=== PATIENT | male | born 1945 | race Caucasian/White ===

== ENCOUNTER → 2020-12-03 | Outpatient (CLI) | payer OTHER ==
[~2020-12-03] VITALS: Ht 160 cm; Wt 68.0 kg
[~2020-12-03] MED LIST: ABIR250T2 PO; AMLO-496 PO; CYAN100060 PO; HYDROmorphone HCL 2 MG/ML VL IV PRN; METO25TA5 PO; OME20GT PO; ONDANSETRON HCL 4 MG/2 ML VIAL IV PRN; PRED1PAK8 PO; SUCCINYLCHOLINE CHLORIDE 20 MG/ML 10ML VIAL IV ONE
== END | disposition home or self-care (01) ==
LOC: SUR 14:52 → EDSTATUS 12-06 12:45
PROVIDERS: ATTEND Urology
DX: R31.9 Hematuria, unspecified (principal); Z20.822 Contact with and (suspected) exposure to COVID-19; Z98.890 Other specified postprocedural states
CPT/HCPCS: J0330

== ENCOUNTER 2020-12-04 10:04 | Inpatient (IN) | payer OTHER ==
[2020-12-04] VITALS (14 sets, daily range): BP systolic 114–173; BP diastolic 37–88
[~2020-12-04] VITALS: Ht 165.1 cm; Wt 71.1 kg
[~2020-12-04 10:04] MED LIST changes: -HYDROmorphone HCL 2 MG/ML VL IV PRN; -ONDANSETRON HCL 4 MG/2 ML VIAL IV PRN; -SUCCINYLCHOLINE CHLORIDE 20 MG/ML 10ML VIAL IV ONE
[2020-12-04 11:03] LABS: Hematocrit 11.9 % (41.0-53.0); Mean Corpuscular Hemoglobin 29.1 pg (28.0-32.0); Mean Corpuscular Hgb Conc. 34.5 g/dL (32.0-36.0); Mean Corpuscular Volume 84.2 fL (80.0-100.0); Platelet Count (auto) 452 10^3/uL (140-450); Red Blood Cells 1.41 10^6/uL (4.5-5.90); Red Cell Distribution Width 15.7 % (11.8-14.3); White Blood Cell 3.6 10^3/uL (4.4-10.8)
[2020-12-04 11:04] LABS: Urine Bacteria NONE SEEN /hpf (None Seen); Urine Blood 3+ /uL (Negative); Urine WBC 433 /hpf (0 - 3)
[2020-12-04 11:05] LABS: Hemoglobin 4.1 g/dL (13.5-17.5)
[2020-12-04 11:06] LABS: Urine Specific Gravity 1.018 (1.001-1.035)
[2020-12-04 11:07] LABS: Basophils % (manual) 0 (0.0-2.0); Blast Cells 0; Eosinophils % (manual) 0 (0-7); Metamyelocytes % 0; Myelocytes % 0; Promyelocytes % 0; Reactive Lymphocytes 0
[2020-12-04 11:13] LABS: Albumin 2.9 g/dL (3.4-5.0); Anion Gap 10 (5-15); Blood Urea Nitrogen 11 mg/dL (7-18); Calcium 8.2 mg/dL (8.5-10.1); Carbon Dioxide 27 mmol/L (21-32); Chloride 95 mmol/L (98-107); Glucose 130 mg/dL (74-106); Potassium 3.2 mmol/L (3.5-5.1); Sodium 132 mmol/L (136-145)
[2020-12-04 11:18] LABS: Alanine Aminotransferase 12 U/L (16-61); Alkaline Phosphatase 31 U/L (45-117); Aspartate Aminotransferase 16 U/L (15-37); BUN/Creatinine Ratio 10.8; Bilirubin, Total 0.4 mg/dL (0.2-1.0); GFR African American 92 mL/min; GFR Non-African American 76 mL/min; Total Protein 5.6 g/dL (6.4-8.2)
[2020-12-04 11:30] LABS: Band Neutrophils % (manual) 2; Lymphocytes % (manual) 10 (10.0-50.0); Monocytes % (manual) 6 (0-12)
[2020-12-04] MEDS ORDERED: LIDOCAINE 2% JELLY 11ml (GLYDO) UR ONE (11:45)
[2020-12-04] MEDS ORDERED: LIDOCAINE 2% JELLY 11ml (GLYDO) ONE (11:46)
[2020-12-04] MEDS ORDERED: cefTRIAXone 1GM/50ML D5W 50 ML IV ONE (13:30)
[2020-12-04] MEDS ORDERED: NITROGLYCERIN 0.4 MG SL TAB SL PRN (14:30)
[2020-12-04] MEDS ORDERED: MORPHINE SULF INJ 2 MG/ML SYRINGE 1ML IV PRN (14:30)
[2020-12-04] MEDS ORDERED: ALPRAZolam 0.25 MG TAB PO PRN (14:30)
[2020-12-04] MEDS ORDERED: POTASSIUM CHLORIDE 40 MEQ, LIDOCAINE 1% (LOCAL ANESTH.) 4 ML in SODIUM CHL 0.9% 250 ML IV ONE (14:30)
[2020-12-04] MEDS: ABIRATERONE ACETATE 250 MG PO SCH ×2 (18:00→22:00)
[2020-12-04] MEDS: GABAPENTIN 300 MG CAP PO SCH (22:30)
[2020-12-04] MEDS: METOPROLOL TARTRATE 25 MG TAB PO SCH (22:30)
[2020-12-05] VITALS (24 sets, daily range): BP systolic 106–167; BP diastolic 48–80
[2020-12-05 01:51] LABS: Basophils # (auto) 0 10 ^3/uL (0-0.2); Basophils % (auto) 0.5 % (0.0-2.0); Eosinophils # (auto) 0 10 ^3/uL (0-0.8); Eosinophils % (auto) 0.8 % (0.0-7.0); Hematocrit 25.3 % (41.0-53.0); Hemoglobin 8.7 g/dL (13.5-17.5); Lymphocytes # (auto) 0.5 10 ^3/uL (0.4-5.4); Lymphocytes % (auto) 12.8 % (10.0-50.0); Mean Corpuscular Hgb Conc. 34.2 g/dL (32.0-36.0); Mean Corpuscular Volume 84.8 fL (80.0-100.0); Monocytes # (auto) 0.4 10 ^3/uL (0-1.3); Monocytes % (auto) 9.6 % (0.0-12.0); Neutrophils % (auto) 76.3 % (37.0-80.0); Nucleated Red Blood Cells % 0.1 %; Platelet Count (auto) 302 10^3/uL (140-450); Red Blood Cells 2.99 10^6/uL (4.5-5.90); Red Cell Distribution Width 14.8 % (11.8-14.3); White Blood Cell 3.9 10^3/uL (4.4-10.8)
[2020-12-05 05:56] LABS: Basophils # (auto) 0 10 ^3/uL (0-0.2); Basophils % (auto) 0.9 % (0.0-2.0); Eosinophils # (auto) 0 10 ^3/uL (0-0.8); Hematocrit 26.6 % (41.0-53.0); Lymphocytes # (auto) 0.6 10 ^3/uL (0.4-5.4); Lymphocytes % (auto) 13.6 % (10.0-50.0); Mean Corpuscular Hgb Conc. 33.9 g/dL (32.0-36.0); Mean Corpuscular Volume 85.7 fL (80.0-100.0); Monocytes # (auto) 0.4 10 ^3/uL (0-1.3); Monocytes % (auto) 9.6 % (0.0-12.0); Neutrophils # (auto) 3.1 10 ^3/uL (1.6-8.6); Neutrophils % (auto) 74.9 % (37.0-80.0); Nucleated Red Blood Cells % 0.2 %; Platelet Count (auto) 329 10^3/uL (140-450); Red Blood Cells 3.11 10^6/uL (4.5-5.90); Red Cell Distribution Width 14.9 % (11.8-14.3); White Blood Cell 4.1 10^3/uL (4.4-10.8)
[2020-12-05 06:23] LABS: Potassium 3.7 mmol/L (3.5-5.1)
[2020-12-05] MEDS: ABIRATERONE ACETATE 250 MG PO SCH ×4 (06:30→22:00)
[2020-12-05] MEDS: GABAPENTIN 300 MG CAP PO SCH ×3 (06:30→22:01)
[2020-12-05 06:34] LABS: BUN/Creatinine Ratio 9.9; Calcium 7.5 mg/dL (8.5-10.1); Magnesium 2.7 mg/dL (1.6-2.6)
[2020-12-05] MEDS: amLODIPine BESYLATE 5 MG TAB PO SCH (09:48)
[2020-12-05] MEDS: CYANOCOBALAMIN 500 MCG TAB PO SCH (09:48)
[2020-12-05] MEDS: PANTOPRAZOLE 40 MG TAB PO SCH (09:48)
[2020-12-05] MEDS: METOPROLOL TARTRATE 25 MG TAB PO SCH ×2 (09:48→22:01)
[2020-12-05] MEDS ORDERED: FOLIC ACID 1 MG, MULTIPLE VITAMIN 10 ML, MAGNESIUM SULF SDV 50% 8 MEQ, THIAMINE INJ 100... INJ ONE ×5 (12:00)
[2020-12-06] VITALS (24 sets, daily range): BP systolic 107–154; BP diastolic 48–86
[2020-12-06 03:06] LABS: Basophils # (auto) 0 10 ^3/uL (0-0.2); Eosinophils # (auto) 0.1 10 ^3/uL (0-0.8); Eosinophils % (auto) 2.7 % (0.0-7.0); Hematocrit 24.7 % (41.0-53.0); Hemoglobin 8.5 g/dL (13.5-17.5); Lymphocytes # (auto) 0.5 10 ^3/uL (0.4-5.4); Lymphocytes % (auto) 12.4 % (10.0-50.0); Mean Corpuscular Hemoglobin 29.3 pg (28.0-32.0); Mean Corpuscular Hgb Conc. 34.5 g/dL (32.0-36.0); Mean Corpuscular Volume 84.9 fL (80.0-100.0); Monocytes # (auto) 0.3 10 ^3/uL (0-1.3); Monocytes % (auto) 9.1 % (0.0-12.0); Neutrophils # (auto) 2.8 10 ^3/uL (1.6-8.6); Neutrophils % (auto) 74.8 % (37.0-80.0); Nucleated Red Blood Cells % 0.2 %; Platelet Count (auto) 330 10^3/uL (140-450); Red Blood Cells 2.91 10^6/uL (4.5-5.90); Red Cell Distribution Width 15.6 % (11.8-14.3); White Blood Cell 3.7 10^3/uL (4.4-10.8)
[2020-12-06 03:25] LABS: INR 0.99 (0.9-1.15)
[2020-12-06 03:27] LABS: BUN/Creatinine Ratio 11.3; Calcium 7.9 mg/dL (8.5-10.1); Potassium 3.6 mmol/L (3.5-5.1)
[2020-12-06] MEDS: ABIRATERONE ACETATE 250 MG PO SCH ×4 (07:19→22:38)
[2020-12-06] MEDS: GABAPENTIN 300 MG CAP PO SCH ×3 (07:19→22:39)
[2020-12-06] MEDS: METOPROLOL TARTRATE 25 MG TAB PO SCH ×2 (08:28→22:39)
[2020-12-06] MEDS: CYANOCOBALAMIN 500 MCG TAB PO SCH (08:38)
[2020-12-06] MEDS: PANTOPRAZOLE 40 MG TAB PO SCH (08:38)
[2020-12-06] MEDS: amLODIPine BESYLATE 5 MG TAB PO SCH (08:38)
[2020-12-06] MEDS ORDERED: CIPROFLOXACIN 400MG/200ML 200 ML IV ONE (12:18)
[2020-12-06] MEDS ORDERED: fentaNYL CITRATE 100 MCG/2 ML VL ONE (12:19)
[2020-12-06] MEDS ORDERED: MIDAZOLAM HCL 1MG/1ML-2 ML VIAL ONE (12:19)
[2020-12-06] MEDS ORDERED: PHENYLEPHRINE HCL 10 MG/ML VL IV ONE (12:21)
[2020-12-06] MEDS ORDERED: SUCCINYLCHOLINE CHLORIDE 20 MG/ML 10ML VIAL IV ONE (12:21)
[2020-12-06] MEDS ORDERED: ONDANSETRON HCL 4 MG/2 ML VIAL IV ONE (12:21)
[2020-12-06] MEDS ORDERED: PROPOFOL 10 MG/ML 20 ML IV ONE (12:23)
[2020-12-06] MEDS ORDERED: LIDOCAINE 2% (LOCAL ANESTH.) PF 5ml SDV ONE (12:23)
[2020-12-06] MEDS ORDERED: ONDANSETRON HCL 4 MG/2 ML VIAL IV PRN (14:00)
[2020-12-06] MEDS: HYDROmorphone HCL 2 MG/ML VL IV PRN ×5 (14:02→14:52)
[2020-12-06] MEDS ORDERED: MORPHINE SULF INJ 2 MG/ML SYRINGE 1ML IV ONE (17:15)
[2020-12-06] MEDS ORDERED: ACETAMINOPHEN 325 MG TAB PO PRN (18:15)
[2020-12-06] MEDS ORDERED: MORPHINE SULF INJ 2 MG/ML SYRINGE 1ML IV PRN (18:15)
[2020-12-06] MEDS ORDERED: HYDROcodone-ACET 5/325MG TAB PO PRN (18:15)
[2020-12-06] MEDS: DOCUSATE SOD 100 MG CAP PO SCH (22:39)
[2020-12-07] VITALS (20 sets, daily range): BP systolic 96–149; BP diastolic 47–76
[2020-12-07] MEDS: ABIRATERONE ACETATE 250 MG PO SCH ×2 (06:41→12:00)
[2020-12-07] MEDS: GABAPENTIN 300 MG CAP PO SCH ×2 (06:42→14:00)
[2020-12-07] MEDS: DOCUSATE SOD 100 MG CAP PO SCH (09:55)
[2020-12-07] MEDS: amLODIPine BESYLATE 5 MG TAB PO SCH (09:56)
[2020-12-07] MEDS: METOPROLOL TARTRATE 25 MG TAB PO SCH (09:56)
[2020-12-07] MEDS: PANTOPRAZOLE 40 MG TAB PO SCH (09:57)
[2020-12-07] MEDS: CYANOCOBALAMIN 500 MCG TAB PO SCH (10:06)
== END 2020-12-07 23:24 | disposition home health service (06) | DRG 695 ==
LOC: ER 10:04 → TELE 15:46 → DOU IN ICU 23:43
PROVIDERS: ADMIT Nurse Practitioner Acute Care; ATTEND Internal Medicine
PROC: 30230N1 Transfusion of Nonautologous Red Blood Cells into Peripheral Vein, Open Approach (ICD-10-PCS; principal; 2020-12-04)
PROC: 0TCB8ZZ Extirpation of Matter from Bladder, Via Natural or Artificial Opening Endoscopic (ICD-10-PCS; 2020-12-06)
PROC: 0T7D8ZZ Dilation of Urethra, Via Natural or Artificial Opening Endoscopic (ICD-10-PCS; 2020-12-06)
PROC: 0T5D8ZZ Destruction of Urethra, Via Natural or Artificial Opening Endoscopic (ICD-10-PCS; 2020-12-06)
PROC: 0T9B70Z Drainage of Bladder with Drainage Device, Via Natural or Artificial Opening (ICD-10-PCS; 2020-12-06)
DX: R31.0 Gross hematuria (principal); I21.4 Non-ST elevation (NSTEMI) myocardial infarction; D64.9 Anemia, unspecified; N39.0 Urinary tract infection, site not specified; N35.911 Unspecified urethral stricture, male, meatal; Z20.822 Contact with and (suspected) exposure to COVID-19; I10 Essential (primary) hypertension; F41.9 Anxiety disorder, unspecified; Z85.46 Personal history of malignant neoplasm of prostate; Z85.51 Personal history of malignant neoplasm of bladder
CPT/HCPCS: 36415; 36430; 71045; 80048; 80053; 81001; 83735; 83880; 84484; 85007; 85025; 85027; 85610; 86850; 86900; 86901; 86920; 87081; 93005; 93306; 96365; 99291; G0378; J0330; J0696; J2001; J2250; J2405; J2704

== ENCOUNTER 2021-01-03 09:26 | Day surgery (SDC) | payer OTHER ==
[~2021-01-03] VITALS: Ht 160 cm; Wt 68.0 kg
[~2021-01-03 09:26] MED LIST changes: +PRE1T PO; -PRED1PAK8 PO
[2021-01-03] MEDS ORDERED: ceFAZolin 1GM/50ML 50 ML IV ONE (09:47)
[2021-01-03] MEDS ORDERED: ceFAZolin 1GM/50ML 100 ML IV ONE (12:02)
[2021-01-03] MEDS ORDERED: SUCCINYLCHOLINE CHLORIDE 20 MG/ML 10ML VIAL IV ONE (13:14)
[2021-01-03] MEDS ORDERED: fentaNYL CITRATE 100 MCG/2 ML VL ONE (13:19)
[2021-01-03] MEDS ORDERED: MIDAZOLAM HCL 1MG/1ML-2 ML VIAL ONE (13:20)
[2021-01-03] MEDS ORDERED: PROPOFOL 10 MG/ML 20 ML IV ONE (14:08)
[2021-01-03] MEDS ORDERED: ONDANSETRON HCL 4 MG/2 ML VIAL ONE (14:08)
[2021-01-03] MEDS ORDERED: HYDROmorphone HCL 2 MG/ML VL IV PRN (14:30)
[2021-01-03] MEDS ORDERED: LABETALOL HCL 5 MG/ML 4ML SYRINGE IV PRN (14:30)
[2021-01-03] MEDS ORDERED: ONDANSETRON HCL 4 MG/2 ML VIAL IV PRN (14:30)
[2021-01-03] MEDS ORDERED: LIDOCAINE 2% (LOCAL ANESTH.) PF 5ml SDV ONE (14:37)
[2021-01-03 15:00] VITALS: BP 182/83
== END 2021-01-03 15:15 | disposition home or self-care (01) ==
LOC: SUR 09:26
PROVIDERS: ATTEND Urology
DX: R31.0 Gross hematuria (principal); D49.4 Neoplasm of unspecified behavior of bladder; K21.9 Gastro-esophageal reflux disease without esophagitis; D64.9 Anemia, unspecified; I10 Essential (primary) hypertension; Z20.822 Contact with and (suspected) exposure to COVID-19; Z98.890 Other specified postprocedural states; Z79.899 Other long term (current) drug therapy; Z85.46 Personal history of malignant neoplasm of prostate
CPT/HCPCS: 52234; 88305; 88312; 88313; 88342; J0330; J0690; J1170; J2001; J2250; J2405; J2704; J3010; J7030; U0003

== ENCOUNTER 2021-01-05 09:47 | Emergency (ER) | payer OTHER ==
[~2021-01-05] VITALS: Ht 160 cm; Wt 64.4 kg
[2021-01-05 10:14] LABS: Basophils # (auto) 0 10 ^3/uL (0-0.2); Basophils % (auto) 0.6 % (0.0-2.0); Eosinophils # (auto) 0.1 10 ^3/uL (0-0.8); Eosinophils % (auto) 0.8 % (0.0-7.0); Hematocrit 29.6 % (41.0-53.0); Hemoglobin 10.1 g/dL (13.5-17.5); Lymphocytes # (auto) 0.3 10 ^3/uL (0.4-5.4); Lymphocytes % (auto) 4.6 % (10.0-50.0); Mean Corpuscular Hemoglobin 29.8 pg (28.0-32.0); Mean Corpuscular Hgb Conc. 34.2 g/dL (32.0-36.0); Mean Corpuscular Volume 87.2 fL (80.0-100.0); Monocytes # (auto) 0.5 10 ^3/uL (0-1.3); Monocytes % (auto) 7.1 % (0.0-12.0); Neutrophils # (auto) 6.5 10 ^3/uL (1.6-8.6); Neutrophils % (auto) 86.9 % (37.0-80.0); Nucleated Red Blood Cells % 0.1 %; Platelet Count (auto) 257 10^3/uL (140-450); Red Cell Distribution Width 16.9 % (11.8-14.3); White Blood Cell 7.5 10^3/uL (4.4-10.8)
[2021-01-05 10:30] LABS: Albumin 3.3 g/dL (3.4-5.0); Calcium 9.1 mg/dL (8.5-10.1); INR 0.96 (0.9-1.15); Partial Thromboplastin Time 28.1 sec (23.0-31.2); Potassium 3.9 mmol/L (3.5-5.1)
[2021-01-05 10:33] LABS: Bilirubin, Total 0.5 mg/dL (0.2-1.0); Total Protein 6.7 g/dL (6.4-8.2)
[2021-01-05 14:11] LABS: Urine Amorphous Crystal FEW /hpf (None Seen); Urine Bacteria NONE SEEN /hpf (None Seen); Urine Blood 3+ /uL (Negative); Urine Specific Gravity 1.014 (1.001-1.035); Urine WBC 195 /hpf (0 - 3); Urine WBC Clumps PRESENT /hpf (None Seen)
[2021-01-05] MEDS ORDERED: cefTRIAXone 1GM/50ML D5W 50 ML IV ONE (14:45)
[2021-01-05 15:14] VITALS: BP 149/89
[2021-01-05] MEDS ORDERED: LIDOCAINE 1% HCL (LOCAL ANESTH.) INJ 20ML MDV ONE (16:29)
[2021-01-05] MEDS ORDERED: cefTRIAXone SOD 1,000 MG VL ONE (16:29)
[2021-01-05] MEDS ORDERED: LIDOCAINE 1% HCL (LOCAL ANESTH.) INJ 20ML MDV ID ONE (16:30)
[2021-01-05] MEDS ORDERED: cefTRIAXone SOD 1,000 MG VL IM ONE (16:30)
== END 2021-01-05 16:45 | disposition home or self-care (01) ==
LOC: ER 09:47
DX: R31.0 Gross hematuria (principal); I10 Essential (primary) hypertension; Z90.49 Acquired absence of other specified parts of digestive tract; Z79.899 Other long term (current) drug therapy
CPT/HCPCS: 36415; 51700; 80053; 81001; 85025; 85610; 85730; 96372; 99284; J0696; J2001

== ENCOUNTER 2021-06-06 16:40 | Emergency (ER) | payer OTHER ==
[~2021-06-06] VITALS: Ht 165.1 cm; Wt 59.0 kg
[2021-06-06 16:45] VITALS: BP 113/82
[2021-06-06] MEDS ORDERED: PANTOPRAZOLE 40 MG/10 ML VIAL INJ IV ONE (18:00)
[2021-06-06] MEDS ORDERED: SODIUM CHLORIDE 0.9% 500 ML IVB ONE (18:00)
[2021-06-06] MEDS ORDERED: ONDANSETRON HCL 4 MG/2 ML VIAL IV ONE (18:00)
[2021-06-06] MEDS ORDERED: MORPHINE SULFATE 4 MG/ML SYR/VIAL IV ONE (18:00)
[2021-06-06 18:27] LABS: Basophils # (auto) 0.1 10 ^3/uL (0-0.2); Basophils % (auto) 1.1 % (0.0-2.0); Eosinophils # (auto) 0.1 10 ^3/uL (0-0.8); Lymphocytes # (auto) 0.5 10 ^3/uL (0.4-5.4); Mean Corpuscular Volume 75.1 fL (80.0-100.0); Neutrophils # (auto) 5.6 10 ^3/uL (1.6-8.6); White Blood Cell 6.9 10^3/uL (4.4-10.8)
[2021-06-06 18:28] LABS: Eosinophils % (auto) 1.3 % (0.0-7.0); Hematocrit 27.2 % (41.0-53.0); Lymphocytes % (auto) 7.5 % (10.0-50.0); Mean Corpuscular Hemoglobin 24.8 pg (28.0-32.0); Monocytes # (auto) 0.7 10 ^3/uL (0-1.3); Monocytes % (auto) 9.4 % (0.0-12.0); Neutrophils % (auto) 80.7 % (37.0-80.0); Nucleated Red Blood Cells % 0.2 %; Red Blood Cells 3.63 10^6/uL (4.5-5.90); Red Cell Distribution Width 18.2 % (11.8-14.3)
[2021-06-06 18:50] LABS: Albumin 2.6 g/dL (3.4-5.0); BUN/Creatinine Ratio 15.2; Calcium 8.6 mg/dL (8.5-10.1); Potassium 4.4 mmol/L (3.5-5.1)
[2021-06-06 18:53] LABS: Bilirubin, Total 0.3 mg/dL (0.2-1.0); Total Protein 6.3 g/dL (6.4-8.2)
== END 2021-06-06 20:42 | disposition left against medical advice (07) ==
LOC: ER 16:40
DX: K56.600 Partial intestinal obstruction, unspecified as to cause (principal); I10 Essential (primary) hypertension; F12.10 Cannabis abuse, uncomplicated; Z20.822 Contact with and (suspected) exposure to COVID-19
CPT/HCPCS: 36415; 74176; 80053; 82150; 83690; 85025; 87426; 93005